=== PATIENT | male | born 1970 | race Caucasian/White ===

== ENCOUNTER 2017-04-01 08:19 | Emergency (ER) | payer SELFPAY ==
[~2017-04-01 08:19] MED LIST: HYDROMORPHONE HC4 M1 PO
[2017-04-01] MEDS ORDERED: NORCO 7.5-3251 EACH PO (10:27)
== END 2017-04-01 10:50 ==
LOC: EDMED 08:19
DX: S02.609A Fracture of mandible, unspecified, initial encounter for closed fracture (principal); I10 Essential (primary) hypertension; F17.210 Nicotine dependence, cigarettes, uncomplicated; Y08.89XA Assault by other specified means, initial encounter; Y92.009 Unspecified place in unspecified non-institutional (private) residence as the place of occurrence of the external cause

== ENCOUNTER 2017-04-02 17:37 | Day surgery (SDC) | payer SELFPAY ==
[~2017-04-02 17:37] MED LIST changes: +NORCO 7.5-3251 EACH PO
== END 2017-04-02 23:15 ==
LOC: SRG 17:37 → SHSB 17:47 → PACU 21:33 → 5WD 21:51
PROC: 0NSV04Z Reposition Left Mandible with Internal Fixation Device, Open Approach (ICD-10-PCS; principal; 2017-04-02)
DX: S02.66XA Fracture of symphysis of mandible, initial encounter for closed fracture (principal); S02.641A Fracture of ramus of right mandible, initial encounter for closed fracture; S02.5XXA Fracture of tooth (traumatic), initial encounter for closed fracture; F17.210 Nicotine dependence, cigarettes, uncomplicated; B19.20 Unspecified viral hepatitis C without hepatic coma; Z98.890 Other specified postprocedural states; Y08.89XA Assault by other specified means, initial encounter
CPT/HCPCS: C1713; J0690; J1100